=== PATIENT | female | born 1955 | race Caucasian/White ===

== ENCOUNTER → 2017-03-29 | Outpatient (CLI) | payer BC ==
[2017-03-29 13:46] LABS: ALT/SGPT 23 U/L (12-78); BLOOD UREA NITROGEN 12 mg/dl (7-18); BUN/CREATININE RATIO 15.4 (10-20); CARBON DIOXIDE 30 mmol/L (21-32); CHLORIDE 105 mmol/L (98-107); CHOLESTEROL 206 mg/dl (0-200); GLUCOSE 126 mg/dl (70-99); POTASSIUM 4.4 mmol/L (3.5-5.1); SODIUM 143 mmol/L (136-145); TRIGLYCERIDES 137 mg/dl (0-150); VERY LOW DENSITY LIPOPROT CALC 27 mg/dl
[2017-03-29 13:49] LABS: CALCIUM 9.6 mg/dl (8.5-10.1)
[2017-03-29 13:56] LABS: CHOLESTEROL/HDL RATIO 4.2; HDL CHOLESTEROL 49 mg/dl; LDL CHOLESTEROL CALCULATED 130 mg/dl; THYROID STIMULATING HORMONE 0.632 uIu/ml (0.300-4.500)
== END ==
LOC: C.LABMFLN 09:43
PROVIDERS: ATTEND Family Medicine
DX: E88.81 Metabolic syndrome and other insulin resistance (principal); R73.01 Impaired fasting glucose; E03.9 Hypothyroidism, unspecified

== ENCOUNTER → 2017-04-03 | Outpatient (CLI) | payer BC ==
[2017-04-03 13:56] LABS: ESTIMATED AVERAGE GLUCOSE 137 mg/dl; HA1C FLAG Normal (Normal)
[2017-04-03 14:35] LABS: ALKALINE PHOSPHATASE 100 U/L (45-117); ALT/SGPT 23 U/L (12-78); AST/SGOT 17 U/L (15-37)
== END | disposition home or self-care (01) ==
LOC: C.LABMFLN 11:02
PROVIDERS: ATTEND Family Medicine
DX: R73.01 Impaired fasting glucose (principal); L29.9 Pruritus, unspecified

== ENCOUNTER → 2018-01-18 | Outpatient (CLI) | payer BC ==
[2018-01-18 14:15] LABS: ALBUMIN 3.4 gm/dl (3.4-5.0); TOTAL PROTEIN 7.4 gm/dl (6.4-8.2)
== END | disposition home or self-care (01) ==
LOC: C.LABMFLN 08:26
PROVIDERS: ATTEND Family Medicine
DX: R73.01 Impaired fasting glucose (principal); L29.9 Pruritus, unspecified